=== PATIENT | male | born 1970 | race Two or more races ===

== ENCOUNTER 2020-11-19 16:05 | Inpatient (IN) | payer SELFPAY ==
[~2020-11-19] VITALS: Ht 182.9 cm; Wt 81.2 kg
[2020-11-19] MEDS ORDERED: ASPIRIN 81MG TABLET PO ONE (16:30)
[2020-11-19] MEDS ORDERED: NITROGLYCERIN 0.4MG TABLET SL SL PRN (16:30)
[2020-11-19 16:47] LABS: EOSINOPHILS % 1.5 % (0.0-5.0); HEMATOCRIT. 38.7 % (42.0-52.0); HEMOGLOBIN. 13.2 g/dL (14.0-18.0); LYMPHOCYTES % 17.3 % (20.0-50.0); MEAN CORPUSCULAR HEMOGLOBIN 26.7 pg (28.0-32.0); MEAN CORPUSCULAR VOLUME 78.1 fL (80.0-94.0); MEAN PLATELET VOLUME 7.5 fl (7.4-10.4); NEUTROPHILS % 71.2 % (40.0-76.0); PLATELET 166 x1000/uL (130-400); RED BLOOD CELL COUNT 4.95 mill/uL (4.7-6.1)
[2020-11-19 16:53] LABS: CHLORIDE 102 mEq/L (98-107)
[2020-11-19 16:58] LABS: ETHANOL BLOOD < 10 mg/dL
[2020-11-19] MEDS ORDERED: ONDANSETRON HCL 4MG/2ML INJ IV STA (17:32)
[2020-11-19] MEDS ORDERED: MORPHINE SULFATE 4 MG/ML CPJ (NOT FOR IM USE) IV STA (17:32)
[2020-11-19 19:19] LABS: *AMPHETAMINES SCREEN URINE NEGATIVE (NEGATIVE); *BARBITURATES SCREEN URINE NEGATIVE (NEGATIVE); *BENZODIAZEPINES SCREEN URINE NEGATIVE (NEGATIVE); *COCAINE SCREEN URINE NEGATIVE (NEGATIVE)
[2020-11-19 19:21] LABS: CANNABINOID URINE SCREEN NEGATIVE (NEGATIVE); METHADONE URINE SCREEN NEGATIVE (NEGATIVE); OPIATES URINE SCREEN PRESUMTIVE POSITIVE (NEGATIVE); PHENCYCLIDINE URINE SCREEN NEGATIVE (NEGATIVE)
[2020-11-19] MEDS ORDERED: INSULIN REGULAR (HUMULIN R) 300UNITS/3ML VIAL SUBCUT ONE (19:45)
[2020-11-19] MEDS ORDERED: MAGNESIUM/ALUMINUM HYDROXIDE/SIMETHICONE 30ML UDC PO PRN (20:45)
[2020-11-19] MEDS ORDERED: IPRATROPIUM/ALBUTEROL 0.5-3(2.5)MG/3ML NEB NEB PRN (20:45)
[2020-11-19] MEDS ORDERED: ONDANSETRON HCL 4MG/2ML INJ IV PRN (20:45)
[2020-11-19] MEDS ORDERED: HYDROCODONE/ACETAMINOPHEN 5/325MG TABLET PO PRN (20:45)
[2020-11-19] MEDS ORDERED: CLONIDINE 0.1MG TABLET PO PRN (20:45)
[2020-11-19] MEDS ORDERED: DOCUSATE SODIUM 100MG CAPSULE PO PRN (20:45)
[2020-11-19] MEDS ORDERED: ACETAMINOPHEN 325MG TABLET PO PRN (20:45)
[2020-11-19] MEDS ORDERED: ACETAMINOPHEN WITH CODEINE 300/30MG TABLET PO ONE (21:00)
[2020-11-19] MEDS ORDERED: ENOXAPARIN 40MG/0.4ML SYR SUBCUT SCH (21:00)
[2020-11-19] MEDS: MORPHINE SULFATE 2 MG/ML CPJ (NOT FOR IM USE) IV PRN (21:12)
[2020-11-20] VITALS: BP 143/74
[2020-11-20 00:30] VITALS: BP 143/74
[2020-11-20] MEDS ORDERED: CLOP-31 PO (03:45)
[2020-11-20] MEDS ORDERED: LOPHC2 PO (03:52)
[2020-11-20] MEDS ORDERED: ASPI-1497 PO (03:52)
[2020-11-20] MEDS ORDERED: LISI10TA26 PO (03:52)
[2020-11-20] MEDS ORDERED: PREG75CA MT (03:52)
[2020-11-20] MEDS ORDERED: RANO10003 PO (03:52)
[2020-11-20] MEDS: MORPHINE SULFATE 2 MG/ML CPJ (NOT FOR IM USE) IV PRN ×2 (05:22→09:30)
[2020-11-20 08:00] VITALS: BP 137/68
[2020-11-20] MEDS ORDERED: ASPIRIN 81MG EC TABLET PO SCH ×2 (09:00)
[2020-11-20 09:30] VITALS: BP 137/68
[2020-11-20] MEDS ORDERED: METOPROLOL TARTRATE 50MG TABLET PO SCH (10:45)
[2020-11-20] MEDS ORDERED: ISOSORBIDE MONONITRATE 60MG TABLET SR 24HR PO SCH (11:00)
== END 2020-11-20 10:50 | disposition left against medical advice (07) | DRG 198 ==
LOC: ER 16:05 → MICUSO 19:36 → EDBEDREQ 19:39 → EDBEDREQTM 19:39 → 5WST 23:44
PROVIDERS: ADMIT Internal Medicine; ATTEND Internal Medicine
DX: I25.110 Atherosclerotic heart disease of native coronary artery with unstable angina pectoris (principal); D64.9 Anemia, unspecified; E78.00 Pure hypercholesterolemia, unspecified; F17.210 Nicotine dependence, cigarettes, uncomplicated; Z53.29 Procedure and treatment not carried out because of patient's decision for other reasons; I10 Essential (primary) hypertension; Z82.49 Family history of ischemic heart disease and other diseases of the circulatory system; Z95.1 Presence of aortocoronary bypass graft; Z88.0 Allergy status to penicillin; I25.2 Old myocardial infarction; Z71.6 Tobacco abuse counseling
CPT/HCPCS: 36415; 71045; 80053; 80305; 80320; 83036; 83735; 83880; 84484; 85025; 93005; 93970; 99291; J1815; J2270; J2405; G0480

== ENCOUNTER 2023-07-01 12:06 | Inpatient (IN) | payer MEDICAID ==
[~2023-07-01] VITALS: Ht 218.4 cm; Wt 91.6 kg
[~2023-07-01 12:06] MED LIST: ASPI-1497 PO; CLOP-31 PO; LISI10TA26 PO; LOPHC2 PO; PREG75CA MT; RANO10003 PO
[2023-07-01 12:10] VITALS: O2SAT 99
[2023-07-01] MEDS ORDERED: MORPHINE SULFATE 4 MG/ML CPJ (NOT FOR IM USE) IV ONE ×2 (12:45→14:30)
[2023-07-01 12:56] LABS: BASOPHILS % 0.7 % (0.0-2.0); EOSINOPHILS % 1.6 % (0.0-5.0); HEMATOCRIT. 40.7 % (42.0-52.0); HEMOGLOBIN. 13.9 g/dL (14.0-18.0); LYMPHOCYTES % 18.1 % (20.0-50.0); MEAN CORPUSCULAR HEMOGLOBIN 29.2 pg (28.0-32.0); MEAN CORPUSCULAR VOLUME 85.9 fL (80.0-94.0); MEAN PLATELET VOLUME 7.5 fl (7.4-10.4); MONOCYTES % 10.7 % (2.0-8.0); NEUTROPHILS % 68.9 % (40.0-76.0); PLATELET 208 x1000/uL (130-400); RED BLOOD CELL COUNT 4.74 mill/uL (4.7-6.1); RED CELL DISTRIBUTION WIDTH 15.1 % (11.6-14.6); WHITE BLOOD COUNT 6.6 x1000/uL (4.5-11.0)
[2023-07-01] MEDS ORDERED: ONDANSETRON HCL 4MG/2ML INJ IV NR (13:00)
[2023-07-01 13:05] LABS: PARTIAL THROMBOPLASTIN TIME 27.1 sec (23.4-31.0); PROTHROMBIN TIME 10.7 sec (9.6-11.0)
[2023-07-01 13:13] LABS: CHLORIDE 101 mEq/L (98-107); INDEX HEMOLYSI 2 (1-3); INDEX ICTERIC 1 (1-4); INDEX LIPEMIC 1 (1-3); POTASSIUM 3.9 mEq/L (3.5-5.1); SODIUM 132 mEq/L (136-145)
[2023-07-01 13:16] LABS: ALBUMIN 3.2 g/dL (3.4-5.0); CALCIUM 8.2 mg/dL (8.5-10.1); CARBON DIOXIDE 23 mEq/L (21-32); UREA NITROGEN BLOOD 18 mg/dL (7-21)
[2023-07-01] MEDS ORDERED: IOHEXOL-350 100 ML BOTTLE ONE (13:23)
[2023-07-01 13:24] LABS: ALANINE AMINOTRANSFERASE 99 IU/L (13-61); ASPARTATE AMINOTRANSFERASE 54 IU/L (15-37); BILIRUBIN TOTAL 1.1 mg/dL (0.1-1.0); CREATININE 0.9 mg/dL (0.6-1.3); GLUCOSE 329 mg/dL (70-105); NT PRO B-TYPE NATRIURETIC PEP 75 pg/mL (5-125); PROTEIN TOTAL 7.6 g/dL (6.0-8.3); TROPONIN I HIGH SENSITIVITY 8 ng/L (<78)
[2023-07-01 15:30] LABS: TROPONIN I HIGH SENSITIVITY 9 ng/L (<78)
[2023-07-01] MEDS: MORPHINE SULFATE 2 MG/ML CPJ (NOT FOR IM USE) IV ONE ×2 (16:42→16:48)
[2023-07-01] MEDS ORDERED: CLONIDINE 0.1MG TABLET PO PRN (17:30)
[2023-07-01] MEDS ORDERED: DOCUSATE SODIUM 100MG CAPSULE PO PRN (17:30)
[2023-07-01] MEDS ORDERED: ONDANSETRON HCL 4MG/2ML INJ IV PRN (17:30)
[2023-07-01] MEDS ORDERED: IPRATROPIUM/ALBUTEROL 0.5-3(2.5)MG/3ML NEB HHN PRN (17:30)
[2023-07-01] MEDS ORDERED: TRAMADOL 50MG TABLET PO PRN (17:30)
[2023-07-01] MEDS ORDERED: GUAIFENESIN 200MG/10ML SUGAR FREE UDC PO PRN (17:30)
[2023-07-01] MEDS ORDERED: HYDROCODONE/ACETAMINOPHEN 5/325MG TABLET PO PRN (17:30)
[2023-07-01] MEDS ORDERED: ACETAMINOPHEN 325MG TABLET PO PRN (17:30)
[2023-07-01] MEDS ORDERED: NALOXONE HCL 0.4MG/ML VIAL IV PRN (17:45)
[2023-07-01 18:50] VITALS: BP 138/74; PULSE 88; RESP 20; TEMP 97.8
[2023-07-01] MEDS: MORPHINE SULFATE 2 MG/ML CPJ (NOT FOR IM USE) IV PRN (19:20)
[2023-07-01] MEDS: NICOTINE 21MG PATCH TD SCH (19:21)
[2023-07-01] MEDS ORDERED: METF-416 PO (21:00)
[2023-07-01] MEDS ORDERED: AMLO-375 MT (21:00)
[2023-07-01] MEDS: ENOXAPARIN 30MG/0.3ML SYR SUBCUT SCH (21:00)
[2023-07-01] MEDS ORDERED: LIP40 PO (21:01)
[2023-07-01] MEDS ORDERED: LIP40 MT (21:01)
[2023-07-01] MEDS ORDERED: MORPHINE SULFATE 4 MG/ML CPJ (NOT FOR IM USE) IV NR (21:52)
[2023-07-02] MEDS: MORPHINE SULFATE 2 MG/ML CPJ (NOT FOR IM USE) IV PRN ×4 (01:46→20:17)
[2023-07-02 06:15] LABS: BASOPHILS % 0.9 % (0.0-2.0); EOSINOPHILS % 4.2 % (0.0-5.0); HEMATOCRIT. 39.1 % (42.0-52.0); HEMOGLOBIN. 13.5 g/dL (14.0-18.0); LYMPHOCYTES % 20.4 % (20.0-50.0); MEAN CORPUSCULAR HEMOGLOBIN 29.7 pg (28.0-32.0); MEAN CORPUSCULAR HGB CONC 34.5 g/dL (31.0-37.0); MEAN CORPUSCULAR VOLUME 86.1 fL (80.0-94.0); MEAN PLATELET VOLUME 7.4 fl (7.4-10.4); MONOCYTES % 12.9 % (2.0-8.0); NEUTROPHILS % 61.6 % (40.0-76.0); PLATELET 185 x1000/uL (130-400); RED BLOOD CELL COUNT 4.54 mill/uL (4.7-6.1); RED CELL DISTRIBUTION WIDTH 15.5 % (11.6-14.6); WHITE BLOOD COUNT 4.5 x1000/uL (4.5-11.0)
[2023-07-02 06:34] LABS: CHLORIDE 104 mEq/L (98-107); INDEX HEMOLYSI 1 (1-3); INDEX ICTERIC 1 (1-4); INDEX LIPEMIC 1 (1-3); SODIUM 135 mEq/L (136-145)
[2023-07-02 07:01] LABS: ALANINE AMINOTRANSFERASE 94 IU/L (13-61); ASPARTATE AMINOTRANSFERASE 53 IU/L (15-37); BILIRUBIN TOTAL 1.5 mg/dL (0.1-1.0); CALCIUM 8.4 mg/dL (8.5-10.1); CARBON DIOXIDE 24 mEq/L (21-32); CHOLESTEROL 151 mg/dL (<200); CREATININE 0.9 mg/dL (0.6-1.3); GLUCOSE 229 mg/dL (70-105); HDL CHOLESTEROL 30 mg/dL (40-59); LDL CHOLESTEROL 84 mg/dL (5-100); PROTEIN TOTAL 7.2 g/dL (6.0-8.3); T4 FREE 0.89 ng/dL (0.76-1.46); TRIGLYCERIDE 416 mg/dL (0-150); UREA NITROGEN BLOOD 18 mg/dL (7-21)
[2023-07-02 07:27] LABS: INDEX HEMOLYSI 1 (1-3); INDEX ICTERIC 1 (1-4); INDEX LIPEMIC 1 (1-3)
[2023-07-02 07:33] LABS: IRON 77 ug/dL (50-175); TOTAL IRON BINDING CAPACITY 354 ug/dL (250-450)
[2023-07-02 08:00] VITALS: BP 152/89; PULSE 80; RESP 18; TEMP 97.9
[2023-07-02] MEDS: ENOXAPARIN 30MG/0.3ML SYR SUBCUT SCH (08:40)
[2023-07-02] MEDS: AMLODIPINE 10MG TABLET PO SCH (08:41)
[2023-07-02] MEDS: LISINOPRIL 10MG TABLET PO SCH (08:41)
[2023-07-02] MEDS: ASPIRIN 81MG EC TABLET PO SCH (08:41)
[2023-07-02] MEDS: CLOPIDOGREL 75MG TABLET PO SCH (08:42)
[2023-07-02] MEDS: RANOLAZINE 500 MG TAB.SR.12H PO SCH ×2 (08:42→20:17)
[2023-07-02] MEDS: NICOTINE 21MG PATCH TD SCH (08:56)
[2023-07-02] MEDS: PREGABALIN 75MG CAPSULE PO SCH ×2 (08:56→16:38)
[2023-07-02] MEDS ORDERED: ATORVASTATIN CALCIUM 40MG TABLET PO SCH (09:00)
[2023-07-02] MEDS: NITROGLYCERIN 0.2MG/HR PATCH TOP SCH (11:00)
[2023-07-02 16:00] VITALS: BP 108/60; PULSE 98; RESP 18; TEMP 100.3
[2023-07-02 20:00] VITALS: BP 131/48; PULSE 93; RESP 20; TEMP 97.9
[2023-07-02] MEDS: ENOXAPARIN 100MG/ML SYR SUBCUT SCH (20:12)
[2023-07-02] MEDS ORDERED: DIPHENHYDRAMINE 50MG/ML VIAL IV NR (21:00)
[2023-07-03] VITALS: PULSE 65; RESP 18
[2023-07-03 05:00] VITALS: BP 139/78; PULSE 75; RESP 18; TEMP 98.1
[2023-07-03] MEDS: MORPHINE SULFATE 2 MG/ML CPJ (NOT FOR IM USE) IV PRN ×5 (05:13→22:51)
[2023-07-03 08:00] VITALS: BP 134/82; PULSE 77; RESP 17; TEMP 96.7
[2023-07-03] MEDS: ENOXAPARIN 100MG/ML SYR SUBCUT SCH ×2 (09:00→20:46)
[2023-07-03] MEDS: ASPIRIN 81MG EC TABLET PO SCH (09:18)
[2023-07-03] MEDS: RANOLAZINE 500 MG TAB.SR.12H PO SCH ×2 (09:18→20:46)
[2023-07-03] MEDS: CLOPIDOGREL 75MG TABLET PO SCH (09:18)
[2023-07-03] MEDS: NICOTINE 21MG PATCH TD SCH (09:19)
[2023-07-03] MEDS: AMLODIPINE 10MG TABLET PO SCH (09:19)
[2023-07-03] MEDS: LISINOPRIL 10MG TABLET PO SCH (09:19)
[2023-07-03] MEDS: NITROGLYCERIN 0.2MG/HR PATCH TOP SCH (09:28)
[2023-07-03] MEDS: PREGABALIN 75MG CAPSULE PO SCH ×2 (09:28→16:30)
[2023-07-03] MEDS ORDERED: IODIXANOL 320MG/ML 100 ML BOTTLE IV ONE ×2 (12:50→13:48)
[2023-07-03] MEDS ORDERED: FENTANYL CITRATE/PF 50MCG/ML 2ML VIAL ONE ×2 (12:50→13:20)
[2023-07-03] MEDS ORDERED: MIDAZOLAM HCL 2 MG/2 ML VIAL ONE ×2 (12:50→13:20)
[2023-07-03] MEDS ORDERED: LIDOCAINE HCL 1% 20ML VIAL (Pyxis) INJ ONE (12:51)
[2023-07-03] MEDS ORDERED: HEPARIN 1000 UNITS/ML 10ML ONE (12:51)
[2023-07-03] MEDS ORDERED: DIPHENHYDRAMINE 50MG/ML VIAL ONE (13:05)
[2023-07-03] MEDS ORDERED: SODIUM CHLORIDE 0.45% 1,000 ML IV SCH (14:15)
[2023-07-03] MEDS ORDERED: ATROPINE SULFATE 1MG/10ML SYR IV PRN (14:15)
[2023-07-03] MEDS ORDERED: ACETAMINOPHEN 325MG TABLET PO PRN (14:15)
[2023-07-03 20:00] VITALS: BP 116/70; PULSE 90; RESP 18; TEMP 97.8
[2023-07-03] MEDS: ATORVASTATIN CALCIUM 40MG TABLET PO SCH (20:45)
[2023-07-03] MEDS ORDERED: DIPHENHYDRAMINE 50MG/ML VIAL IV NR (22:45)
[2023-07-04] VITALS: RESP 19
[2023-07-04] MEDS: MORPHINE SULFATE 2 MG/ML CPJ (NOT FOR IM USE) IV PRN ×5 (05:22→22:02)
[2023-07-04 05:30] VITALS: BP 105/56; PULSE 81; RESP 18; TEMP 97.5
[2023-07-04 08:00] VITALS: BP 141/86; PULSE 88; RESP 20; TEMP 96.1
[2023-07-04] MEDS: ENOXAPARIN 100MG/ML SYR SUBCUT SCH ×2 (09:00→16:59)
[2023-07-04] MEDS: NITROGLYCERIN 0.2MG/HR PATCH TOP SCH (09:41)
[2023-07-04] MEDS: NICOTINE 21MG PATCH TD SCH (09:41)
[2023-07-04] MEDS: RANOLAZINE 500 MG TAB.SR.12H PO SCH ×2 (09:41→21:12)
[2023-07-04] MEDS: ASPIRIN 81MG EC TABLET PO SCH (09:42)
[2023-07-04] MEDS: LISINOPRIL 10MG TABLET PO SCH (09:42)
[2023-07-04] MEDS: CLOPIDOGREL 75MG TABLET PO SCH (09:42)
[2023-07-04] MEDS: AMLODIPINE 10MG TABLET PO SCH (09:42)
[2023-07-04] MEDS: PREGABALIN 75MG CAPSULE PO SCH ×2 (09:45→16:58)
[2023-07-04 12:00] VITALS: BP 151/76; PULSE 74; TEMP 97.7
[2023-07-04 20:00] VITALS: BP 151/79; PULSE 61; RESP 18; TEMP 96.2
[2023-07-04] MEDS: ATORVASTATIN CALCIUM 40MG TABLET PO SCH (21:12)
[2023-07-05] VITALS (7 sets, daily range): BP systolic 117–160; BP diastolic 62–101; PULSE 75–87; RESP 18; TEMP 97.7–98.8
[2023-07-05] MEDS: MORPHINE SULFATE 2 MG/ML CPJ (NOT FOR IM USE) IV PRN ×6 (02:03→22:20)
[2023-07-05] MEDS: ENOXAPARIN 100MG/ML SYR SUBCUT SCH ×2 (06:00→18:00)
[2023-07-05] MEDS: PREGABALIN 75MG CAPSULE PO SCH ×2 (08:53→16:47)
[2023-07-05] MEDS: CLOPIDOGREL 75MG TABLET PO SCH (08:53)
[2023-07-05] MEDS: NITROGLYCERIN 0.2MG/HR PATCH TOP SCH (08:54)
[2023-07-05] MEDS: ASPIRIN 81MG EC TABLET PO SCH (08:54)
[2023-07-05] MEDS: NICOTINE 21MG PATCH TD SCH (08:54)
[2023-07-05] MEDS: LISINOPRIL 10MG TABLET PO SCH (08:54)
[2023-07-05] MEDS: RANOLAZINE 500 MG TAB.SR.12H PO SCH ×2 (08:54→20:13)
[2023-07-05] MEDS: AMLODIPINE 10MG TABLET PO SCH (08:55)
[2023-07-05] MEDS ORDERED: DIPHENHYDRAMINE 25MG CAPSULE PO NR ×2 (11:00→12:45)
[2023-07-05] MEDS ORDERED: DEXTROSE 50% WATER 50ML SYRINGE IV PRN (12:45)
[2023-07-05] MEDS: INSULIN LISPRO 100 UNITS/ML SUBCUT SCH ×2 (12:50→16:48)
[2023-07-05] MEDS: FLUDROCORTISONE ACETATE 0.1MG TABLET PO SCH (13:17)
[2023-07-05] MEDS ORDERED: BLOOD SUGAR DIAGNOSTIC STRIP TEST SCH (17:20)
[2023-07-05] MEDS: ATORVASTATIN CALCIUM 40MG TABLET PO SCH (20:13)
[2023-07-05] MEDS: DIPHENHYDRAMINE 25MG CAPSULE PO PRN (22:24)
[2023-07-06] MEDS: ENOXAPARIN 100MG/ML SYR SUBCUT SCH (01:25)
[2023-07-06 02:30] VITALS: BP 128/71; PULSE 73; RESP 18; TEMP 97.9
[2023-07-06] MEDS: MORPHINE SULFATE 2 MG/ML CPJ (NOT FOR IM USE) IV PRN ×5 (02:36→21:45)
[2023-07-06 06:30] VITALS: BP 125/79; PULSE 75; RESP 18; TEMP 98.1
[2023-07-06] MEDS: FLUDROCORTISONE ACETATE 0.1MG TABLET PO SCH (10:12)
[2023-07-06] MEDS: ASPIRIN 81MG EC TABLET PO SCH (10:13)
[2023-07-06] MEDS: PREGABALIN 75MG CAPSULE PO SCH ×2 (10:13→18:06)
[2023-07-06] MEDS: LISINOPRIL 10MG TABLET PO SCH (10:13)
[2023-07-06] MEDS: CLOPIDOGREL 75MG TABLET PO SCH (10:14)
[2023-07-06] MEDS: AMLODIPINE 10MG TABLET PO SCH (10:14)
[2023-07-06] MEDS: NICOTINE 21MG PATCH TD SCH (10:14)
[2023-07-06] MEDS: NITROGLYCERIN 0.2MG/HR PATCH TOP SCH (10:14)
[2023-07-06] MEDS: RANOLAZINE 500 MG TAB.SR.12H PO SCH ×2 (10:21→21:00)
[2023-07-06 10:30] VITALS: BP 127/74; PULSE 82; RESP 20; TEMP 98.2
[2023-07-06] MEDS ORDERED: ONDANSETRON 4MG ODT PO PRN (15:30)
[2023-07-06 16:00] VITALS: BP 167/98; PULSE 96; RESP 18; TEMP 98
[2023-07-06] MEDS: ENOXAPARIN 40MG/0.4ML SYR SUBCUT SCH (16:00)
[2023-07-06] MEDS: ATORVASTATIN CALCIUM 40MG TABLET PO SCH (21:00)
[2023-07-06] MEDS: DIPHENHYDRAMINE 25MG CAPSULE PO PRN (21:47)
[2023-07-07] MEDS ORDERED: MORPHINE SULFATE 2 MG/ML CPJ (NOT FOR IM USE) IV NR (01:00)
[2023-07-07] MEDS: MORPHINE SULFATE 2 MG/ML CPJ (NOT FOR IM USE) IV PRN ×2 (05:17→11:09)
[2023-07-07] MEDS: FLUDROCORTISONE ACETATE 0.1MG TABLET PO SCH (09:00)
[2023-07-07] MEDS: LISINOPRIL 10MG TABLET PO SCH (09:00)
[2023-07-07] MEDS: PREGABALIN 75MG CAPSULE PO SCH ×2 (09:00→11:30)
[2023-07-07] MEDS: NITROGLYCERIN 0.2MG/HR PATCH TOP SCH (09:00)
[2023-07-07] MEDS: ENOXAPARIN 40MG/0.4ML SYR SUBCUT SCH (09:00)
[2023-07-07] MEDS: ASPIRIN 81MG EC TABLET PO SCH (09:00)
[2023-07-07] MEDS: RANOLAZINE 500 MG TAB.SR.12H PO SCH (09:00)
[2023-07-07] MEDS: NICOTINE 21MG PATCH TD SCH (09:00)
[2023-07-07] MEDS: CLOPIDOGREL 75MG TABLET PO SCH (09:00)
[2023-07-07] MEDS: AMLODIPINE 10MG TABLET PO SCH (09:00)
[2023-07-07 11:09] VITALS: BP 127/69; PULSE 86; RESP 20
[2023-07-07] MEDS ORDERED: MORPHINE SULFATE 4 MG/ML CPJ (NOT FOR IM USE) IV NR (14:00)
[2023-07-07] MEDS ORDERED: HYDROCODONE/ACETAMINOPHEN 10/325MG TABLET PO PRN (14:00)
[2023-07-07] MEDS ORDERED: NALOXONE HCL 0.4MG/ML VIAL IV PRN (14:00)
== END 2023-07-07 19:21 | disposition left against medical advice (07) | DRG 191 ==
LOC: ER 12:06 → 8WST 14:29 → EDBEDREQSVC 14:31 → EDBEDREQTM 14:31 → EDBEDREQ 14:31 → 6WST 07-04 10:44
PROVIDERS: ADMIT Hospitalist; ATTEND Hospitalist
PROC: 4A023N7 Measurement of Cardiac Sampling and Pressure, Left Heart, Percutaneous Approach (ICD-10-PCS; principal; 2023-07-03)
PROC: B41G1ZZ Fluoroscopy of Left Lower Extremity Arteries using Low Osmolar Contrast (ICD-10-PCS; 2023-07-03)
PROC: B2111ZZ Fluoroscopy of Multiple Coronary Arteries using Low Osmolar Contrast (ICD-10-PCS; 2023-07-03)
PROC: B2131ZZ Fluoroscopy of Multiple Coronary Artery Bypass Grafts using Low Osmolar Contrast (ICD-10-PCS; 2023-07-03)
PROC: B3101ZZ Fluoroscopy of Thoracic Aorta using Low Osmolar Contrast (ICD-10-PCS; 2023-07-03)
DX: I25.110 Atherosclerotic heart disease of native coronary artery with unstable angina pectoris (principal); C15.9 Malignant neoplasm of esophagus, unspecified; E44.0 Moderate protein-calorie malnutrition; E87.1 Hypo-osmolality and hyponatremia; G54.6 Phantom limb syndrome with pain; E88.09 Other disorders of plasma-protein metabolism, not elsewhere classified; G90.8 Other disorders of autonomic nervous system; D64.9 Anemia, unspecified; Z66 Do not resuscitate; E11.51 Type 2 diabetes mellitus with diabetic peripheral angiopathy without gangrene; E11.65 Type 2 diabetes mellitus with hyperglycemia; E78.00 Pure hypercholesterolemia, unspecified; I10 Essential (primary) hypertension; E78.1 Pure hyperglyceridemia; F17.210 Nicotine dependence, cigarettes, uncomplicated; I95.1 Orthostatic hypotension; Z68.1 Body mass index [BMI] 19.9 or less, adult; Z53.29 Procedure and treatment not carried out because of patient's decision for other reasons; Z79.02 Long term (current) use of antithrombotics/antiplatelets; Z79.4 Long term (current) use of insulin; Z79.82 Long term (current) use of aspirin; Z79.899 Other long term (current) drug therapy; Z80.1 Family history of malignant neoplasm of trachea, bronchus and lung; Z80.6 Family history of leukemia; Z82.49 Family history of ischemic heart disease and other diseases of the circulatory system; Z85.01 Personal history of malignant neoplasm of esophagus; Z86.711 Personal history of pulmonary embolism; Z88.0 Allergy status to penicillin; Z89.511 Acquired absence of right leg below knee; Z91.81 History of falling; Z95.1 Presence of aortocoronary bypass graft; Z95.5 Presence of coronary angioplasty implant and graft
CPT/HCPCS: 36415; 71045; 71275; 74174; 80053; 80061; 83540; 83550; 83880; 83930; 84439; 84443; 84484; 85025; 85379; 86850; 86900; 93005; 93306; 93459; 96374; 96375; 97161; 97166; 99285; C1760; C1769; C1887; C1893; J1200; J1644; J1650; J2250; J2270; J2405; J3010; J3490; Q0163; Q9967